=== PATIENT | male | born 1990 | race Caucasian/White ===

== ENCOUNTER → 2016-09-11 | Outpatient (CLI) | payer OTHER ==
[2016-09-11 10:34] LABS: BASO % 1 % (0-3); EOS % 1 % (0-3); HEMATOCRIT 44.9 % (39.0-53.0); HEMOGLOBIN 15.2 g/dL (13.0-17.5); LYMPH % 23 % (24-48); MEAN CORPUSCULAR HEMOGLOBIN 29 pg (25-35); MEAN CORPUSCULAR HGB CONC 34 g/dL (31-37); MEAN CORPUSCULAR VOLUME 86 fL (79-100); MONO % 12 % (0-9); NEUT % 63 % (31-73); PLATELET COUNT 278 x10^3/uL (140-400); RED BLOOD COUNT 5.25 x10^6/uL (4.30-5.70); RED CELL DISTRIBUTION WIDTH 12.6 % (11.5-14.5); WHITE BLOOD COUNT 8.6 x10^3/uL (4.0-11.0)
[2016-09-11 10:55] LABS: BARBITURATES NEG (NEG); BENZODIAZEPINES NEG (NEG); CANNABINOIDS POS (NEG); COCAINE NEG (NEG); METHADONE NEG (NEG); OPIATES NEG (NEG); PHENCYCLIDINE NEG (NEG)
[2016-09-11 10:59] LABS: ETHANOL, URINE NEG (NEG)
[2016-09-11 11:01] LABS: ALBUMIN 3.6 g/dL (3.4-5.0); ALBUMIN/GLOBULIN RATIO 0.9 (1.0-1.7); CALCIUM 8.5 mg/dL (8.5-10.1); CREATININE 0.7 mg/dL (0.7-1.3); GFR 135.3; POTASSIUM 3.9 mmol/L (3.5-5.1); TOTAL BILIRUBIN 0.5 mg/dL (0.2-1.0); TOTAL PROTEIN 7.7 g/dL (6.4-8.2)
== END | disposition home or self-care (01) ==
LOC: LAB 10:12
PROVIDERS: ATTEND Psychiatry & Neurology Neurology
DX: R56.9 Unspecified convulsions (principal)
CPT/HCPCS: 36415; 80053; 85027; G0481

== ENCOUNTER → 2016-09-13 | Outpatient (CLI) | payer OTHER ==
--- NOTE | 2016-09-14 18:21 | EEG ---
DATE OF SERVICE: 09/13/2016 EEG NUMBER: [id number]. OBJECTIVE: This is a 26-year-old English origin male patient with history of seizure or seizure-like episodes. EEG was requested to evaluate seizure activity. METHODS: Twenty electrodes were applied according to the International 10-20 electrode placement system. EKG monitoring, hyperventilation, intermittent photic stimulation, monopolar and bipolar montages are routinely utilized. The record was obtained on a digital system with video monitoring. MEDICATIONS: No anti-seizure medications. FINDINGS: 1. Background: The patient was recorded in the awake and drowsy states. No sleep state was recorded. The overall background amplitude is 10-30 microvolts. A posterior dominant rhythm of 8-10 Hz is observed. 2. Abnormalities: No specific epileptiform discharge or electrographic seizure is seen. No focal or diffuse slowing. 3. Activation: Hyperventilation was performed with good efforts and normal response. Intermittent photic stimulation was performed with photic driving. No specific epileptiform discharge or electrographic seizure induced by hyperventilation or intermittent photic stimulation. IMPRESSION: This EEG is a normal study for the awake, drowsy and sleep states. No focal, lateralizing, specific epileptiform discharge or electrographic seizure is seen. However, a normal EEG does not rule out seizure. EDMOND MALLOY MD DR: ATUL/elzbieta JOB#: [id number] / [id number] FANTASMA
== END | disposition home or self-care (01) ==
LOC: RT 07:34
PROVIDERS: ATTEND Psychiatry & Neurology Neurology
DX: R56.9 Unspecified convulsions (principal)
CPT/HCPCS: 95816

== ENCOUNTER → 2016-09-14 | Outpatient (CLI) | payer OTHER ==
[~2016-09-14] MED LIST: GADOBUTROL 10 MMOL/10 ML VIAL IV ONE
--- NOTE | 2016-09-14 14:27 | RAD ---
PROCEDURE MRI brain with and without contrast. HISTORY Seizure. TECHNIQUE Sagittal T1, axial T1, axial T2, axial FLAIR, oblique coronal FLAIR, axial T2 gradient, diffusion imaging with ADC map, post-contrast axial, and post-contrast coronal sequences are provided. 10 milliliters of intravenous Gadavist was administered without complication. COMPARISON No comparison is available. FINDINGS The ventricles are normal in size and configuration. There is no acute intracranial hemorrhage or extra-axial fluid collection. There is no mass effect or midline shift. There is no restricted diffusion to suggest an acute infarct. Cervicomedullary junction is unremarkable. Pituitary and suprasellar region are unremarkable. The intracranial flow voids are preserved. Paranasal sinuses and mastoid air cells are clear. Oblique coronal imaging through the temporal lobes demonstrates no evidence of mesial temporal sclerosis or temporal lobe mass. There is no pathologic enhancement. IMPRESSION No acute intracranial findings. Electronically signed by: Luis Chong MD (Sep 14, 2016 14:25:33)
== END | disposition home or self-care (01) ==
LOC: MRI 12:30
PROVIDERS: ATTEND Psychiatry & Neurology Neurology
DX: R56.9 Unspecified convulsions (principal)
CPT/HCPCS: 70553; A9585

== ENCOUNTER → 2016-10-25 | Outpatient (CLI) | payer OTHER ==
--- NOTE | 2016-11-07 18:55 | EEG ---
DATE OF SERVICE: 10/25/2016 EEG NUMBER [id number] OBJECTIVE: This is a 26-year-old male patient with history of seizure. EEG was requested to evaluate seizure activity. METHODS: Twenty electrodes were applied according to the international 10-20 electrode placement system. EKG monitoring, hyperventilation, intermittent photic stimulation, monopolar and bipolar montages are routinely utilized. The record brooks was obtained on a digital system with video monitoring. FINDINGS: 1. Background: The patient was recorded in the awake, drowsy, and sleep states. The overall background amplitude is 20-30 microvolts. A posterior dominant rhythm of 8-10 Hz is observed. 2. Abnormalities: No specific epileptiform discharge or electrographic seizure is seen. No focal or diffuse slowing. 3. Activation: Hyperventilation may be not performed. Intermittent photic stimulation was performed with photic driving. No specific epileptiform discharges induced. IMPRESSION: This EEG is a normal study for the awake, drowsy and sleep states. No focal, lateralizing, specific epileptiform discharge or electrographic seizure is seen. EDMOND MALLOY MD DR: ATUL/elzbieta JOB#: [id number] / [id number] FANTASMA
== END | disposition home or self-care (01) ==
LOC: RT 10:33
PROVIDERS: ATTEND Psychiatry & Neurology Neurology
DX: R56.9 Unspecified convulsions (principal)
CPT/HCPCS: 95816

== ENCOUNTER 2018-07-29 17:35 | Inpatient (IN) | payer OTHER ==
[~2018-07-29] VITALS: Ht 185.4 cm; Wt 113.5 kg
[2018-07-29 18:11] LABS: BASO # 0.1 x10^3/uL (0.0-0.2); BASO % 1 % (0-3); EOS # 0.1 x10^3/uL (0.0-0.7); EOS % 1 % (0-3); HEMATOCRIT 46.5 % (39.0-53.0); LYMPH # 2.4 x10^3/uL (1.0-4.8); LYMPH % 22 % (24-48); MEAN CORPUSCULAR HEMOGLOBIN 30 pg (25-35); MEAN CORPUSCULAR HGB CONC 34 g/dL (31-37); MEAN CORPUSCULAR VOLUME 86 fL (79-100); MONO % 9 % (0-9); NEUT # 7.4 x10^3uL (1.8-7.7); NEUT % 68 % (31-73); PLATELET COUNT 335 x10^3/uL (140-400); RED BLOOD COUNT 5.38 x10^6/uL (4.30-5.70); RED CELL DISTRIBUTION WIDTH 12.6 % (11.5-14.5)
--- NOTE | 2018-07-29 18:16 | RAD ---
CT HEAD WO CONTRAST History: Left numbness since yesterday Comparison: Brain MRI September 14, 2016 Technique: Noncontrast CT imaging was performed of the head. Exposure: One or more of the following individualized dose reduction techniques were utilized for this examination: 1. Automated exposure control 2. Adjustment of the mA and/or kV according to patient size 3. Use of iterative reconstruction technique. Findings: No acute extra-axial or parenchymal hemorrhage is identified. There is no significant intra-axial mass effect, midline shift, or extra-axial fluid collection. The fontaine-white differentiation of the major vascular territories is preserved. The ventricles, sulci, and cisterns are within normal limits in size and configuration. The mastoid air cells and the visualized paranasal sinuses are aerated. No acute calvarial abnormality is identified. Impression: 1. No acute intracranial abnormality is identified. Electronically signed by: Rene Moe MD (07/29/2018 6:13 PM) [facility]
[2018-07-29 18:21] LABS: PROTHROMBIN TIME PATIENT 12.4 SEC (11.7-14.0)
[2018-07-29 18:28] LABS: ALBUMIN/GLOBULIN RATIO 0.9 (1.0-1.7); C-REACTIVE PROTEIN 3.8 mg/L (0-3.3); CALCIUM 9.1 mg/dL (8.5-10.1); CREATININE 0.7 mg/dL (0.7-1.3); GFR 133.3; POTASSIUM 4.1 mmol/L (3.5-5.1); TOTAL BILIRUBIN 0.4 mg/dL (0.2-1.0); TOTAL PROTEIN 8.3 g/dL (6.4-8.2)
[2018-07-29 18:32] LABS: BILIRUBIN,URINE NEGATIVE (NEG); CLARITY,URINE CLOUDY; COLOR,URINE YELLOW; NITRITE,URINE NEGATIVE (NEG); PROTEIN,URINE NEGATIVE (NEG-TRACE); UROBILINOGEN,URINE 0.2 mg/dL (0.2 mg/dL)
[2018-07-29 18:37] LABS: AMPHETAMINE/METHAMPHETAMINE NEG (NEG); BARBITURATES NEG (NEG); BENZODIAZEPINES NEG (NEG); CANNABINOIDS POS (NEG); COCAINE NEG (NEG); METHADONE NEG (NEG); OPIATES POS (NEG); PHENCYCLIDINE NEG (NEG)
[2018-07-29 18:40] LABS: AMORPHOUS SEDIMENT,UR PRESENT /HPF; BACTERIA,URINE 0 /HPF (0-FEW); RBC,URINE 0 /HPF (0-2); SQUAMOUS EPITHELIAL CELL,UR OCC /LPF; WBC,URINE 0 /HPF (0-4)
[2018-07-29] MEDS ORDERED: ASPIRIN 325 MG TABLET PO ONE (18:45)
[2018-07-29] MEDS ORDERED: LABETALOL 20 MG/4 ML DISP.SYRIN. IVP ONE (18:45)
--- NOTE | 2018-07-29 18:51 | PHYS DOC ---
Past Medical History Past Medical History: Hypertension, Seizure (ELANA HART APRN) Past Surgical History: No Surgical History (ELANA HART APRN) Alcohol Use: Occasionally Drug Use: None (ELANA HART APRN) Adult General Chief Complaint Chief Complaint: NEURO SYMPTOMS/DEFICITS HPI HPI 28-year-old male presents to ER via POV with his sister driving him to the hospital from his primary care physician's office. Patient reports yesterday around 12 PM he had onset of left facial numbness and lt side tingling/weakness in extremities. He reports he has had less vision in lt eye- denies PRICE but reports he has been dizzy intermittently. Pt reports he felt his speech was slurred- currently is speaking in full sentences with no slurring. Pt reports he felt lt upper/lower extremities to be heavy. Pt reports he has been able to walk without assist. He denies recent falls/injury. Pt denies ear pain/ tinnitus. He denies CP, palpitations, SOA, abd pain, or N/V/D. He reports appetite has been NL. He denies urinary sxs. Pt reports he has been out of his BP medication since . Pt denies any new medications. (ELANA HART APRN) Review of Systems Review of Systems Constitutional: Denies fever or chills. Denies fatigue Eyes: Denies redness, or eye pain. Reports less vision in lt eye- denies floaters/aura. Reports unable to fully close lt eye HENT: Denies nasal congestion or sore throat [] Respiratory: Denies cough or shortness of breath [] Cardiovascular: Denies CP GI: Denies abdominal pain, nausea, vomiting, bloody stools or diarrhea [] : Denies dysuria or hematuria [] Musculoskeletal: Denies back/neck pain or joint pain [] Integument: Denies rash, swelling or skin lesions [] Neurologic: Denies headache, focal weakness or sensory changes. Reports tingling in lt upper/lower extremity and face. Reports intermittent dizziness Endocrine: Denies polyuria or polydipsia [] All other systems were reviewed and found to be within normal limits, except as documented in this note. (ELANA HART APRN) Current Medications Current Medications Current Medications Medications (Trade) Dose Ordered Sig/Carl Start Time Stop Time Status Last Admin Dose Admin Aspirin (Catrina Aspirin) 325 mg 1X ONCE 07/29/18 18:45 07/29/18 18:46 DC 07/29/18 19:12 325 MG Erythromycin (Romycin) 0.25 inch 1X ONCE 07/29/18 19:00 07/29/18 19:09 DC 07/29/18 19:27 0.25 INCH Labetalol HCl (Normodyne Iv Push) 20 mg 1X ONCE 07/29/18 18:45 07/29/18 18:46 DC (MILAD FREIRE DO) Allergies Allergies Allergies Coded Allergies Type Severity Reaction Last Updated Verified Penicillins Allergy Intermediate 07/29/18 Yes amoxicillin Allergy Intermediate 07/29/18 Yes (MILAD FREIRE DO) Physical Exam Physical Exam Constitutional: Well developed, well nourished, no acute distress, non-toxic appearance. [] HENT: Normocephalic, atraumatic, bilateral ears normal, oropharynx moist- no pharyngeal swelling/erythema- uvula midline, no oral exudates, nose normal. Clear speech- no pooling of secretions or difficulty swallowing. Lt side mouth paralysis with smile Eyes: 3mm PERRLA, EOMI- no pain with eye movements, no nystagmus, conjunctiva normal, no discharge. Pt is able to raise eye brows symmetric- when pt closes eyes tight he has less closure of lt eye. Neck: Normal range of motion, no tenderness, supple, no stridor/gross adenopathy. Trachea midline Cardiovascular: Heart rate regular rhythm, no murmur [] Lungs & Thorax: Bilateral breath sounds clear to auscultation. Resp. equal/ nonlabored Abdomen: Bowel sounds normal, soft/obese, no tenderness, no masses, no pulsatile masses. [] Skin: Warm, dry, no erythema, no rash. [] Back: No tenderness, no CVA tenderness. [] Extremities: No tenderness, no cyanosis, no clubbing, ROM intact, no edema. 2+ radial. 2+ posterior tibial/dorsalis pedis. Steady unassisted gait was seen as pt ambulated from w/c to ER cart Neurologic: Alert and oriented X 3- no drift in upper/lower extremities. Air Conditioning Service Technician equal bilat. Less sensation on lt face/lt upper extremity- he reports full sensation in bilat. LEs Psychologic: Affect normal, judgement normal, mood normal. [] (REFFITT,ELANA Doherty GED TEACHER) Physical Exam Constitutional: Well developed, well nourished Eyes: PERRL, EOMI, left sided ptosis noted. Neck: Normal range of motion, no tenderness, no meningeal signs Cardiovascular: Heart rate regular rhythm, Radial pulses bilaterally +2, CR < 2 sec Lungs & Thorax: Bilateral breath sounds clear to auscultation Extremities: No tenderness, ROM intact, no edema Neurologic: Alert and oriented X 3, left facial droop noted, decreased sensation to left face, and left arm (FREIRE,MILAD R DO) Current Patient Data Vital Signs Vital Signs Date Time Temp Pulse Resp B/P (MAP) Pulse Ox O2 Delivery O2 Flow Rate FiO2 07/29/18 19:00 78 162/102 07/29/18 18:39 23 97 07/29/18 17:39 98.4 Room Air 98.4 (FREIRE,MILAD R DO) Lab Values Laboratory Tests Test 07/29/18 17:48 07/29/18 17:50 07/29/18 18:23 White Blood Count 11.0 x10^3/uL (4.0-11.0) Red Blood Count 5.38 x10^6/uL (4.30-5.70) Hemoglobin 16.0 g/dL (13.0-17.5) Hematocrit 46.5 % (39.0-53.0) Mean Corpuscular Volume 86 fL (79-100) Mean Corpuscular Hemoglobin 30 pg (25-35) Mean Corpuscular Hemoglobin Concent 34 g/dL (31-37) Red Cell Distribution Width 12.6 % (11.5-14.5) Platelet Count 335 x10^3/uL (140-400) Neutrophils (%) (Auto) 68 % (31-73) Lymphocytes (%) (Auto) 22 % (24-48) L Monocytes (%) (Auto) 9 % (0-9) Eosinophils (%) (Auto) 1 % (0-3) Basophils (%) (Auto) 1 % (0-3) Neutrophils # (Auto) 7.4 x10^3uL (1.8-7.7) Lymphocytes # (Auto) 2.4 x10^3/uL (1.0-4.8) Monocytes # (Auto) 1.0 x10^3/uL (0.0-1.1) Eosinophils # (Auto) 0.1 x10^3/uL (0.0-0.7) Basophils # (Auto) 0.1 x10^3/uL (0.0-0.2) Erythrocyte Sedimentation Rate 16 (0-15) H Prothrombin Time 12.4 SEC (11.7-14.0) Prothrombin Time INR 1.0 (0.8-1.1) PTT 29 SEC (24-38) Sodium Level 140 mmol/L (136-145) Potassium Level 4.1 mmol/L (3.5-5.1) Chloride Level 99 mmol/L (98-107) Carbon Dioxide Level 31 mmol/L (21-32) Anion Gap 10 (6-14) Blood Urea Nitrogen 13 mg/dL (8-26) Creatinine 0.7 mg/dL (0.7-1.3) Estimated GFR (Cockcroft-Gault) 133.3 BUN/Creatinine Ratio 19 (6-20) Glucose Level 97 mg/dL (70-99) Lactic Acid Level 1.0 mmol/L (0.4-2.0) Calcium Level 9.1 mg/dL (8.5-10.1) Magnesium Level 2.0 mg/dL (1.8-2.4) Total Bilirubin 0.4 mg/dL (0.2-1.0) Aspartate Amino Transferase (AST) 29 U/L (15-37) Alanine Aminotransferase (ALT) 62 U/L (16-63) Alkaline Phosphatase 79 U/L (46-116) Creatine Kinase 137 U/L (39-308) Creatine Kinase MB (Mass) 1.0 ng/mL (0.0-3.6) Creatine Kinase MB Relative Index 0.7 % (0-4) Troponin I Quantitative < 0.017 ng/mL (0.000-0.055) C-Reactive Protein, Quantitative 3.8 mg/L (0-3.3) H Total Protein 8.3 g/dL (6.4-8.2) H Albumin 4.0 g/dL (3.4-5.0) Albumin/Globulin Ratio 0.9 (1.0-1.7) L Ethyl Alcohol Level < 10 mg/dL (0-10) Glucose (Fingerstick) 92 mg/dL (70-99) Urine Collection Type Unknown Urine Color Yellow Urine Clarity Cloudy Urine pH 7.0 Urine Specific Norman 1.020 Urine Protein Negative mg/dL (NEG-TRACE) Urine Glucose (UA) Negative mg/dL (NEG) Urine Ketones (Stick) Negative mg/dL (NEG) Urine Blood Negative (NEG) Urine Nitrite Negative (NEG) Urine Bilirubin Negative (NEG) Urine Urobilinogen Dipstick 0.2 mg/dL (0.2 mg/dL) Urine Leukocyte Esterase Negative (NEG) Urine RBC 0 /HPF (0-2) Urine WBC 0 /HPF (0-4) Urine Squamous Epithelial Cells Occ /LPF Urine Amorphous Sediment Present /HPF Urine Bacteria 0 /HPF (0-FEW) Urine Mucus Slight /LPF Urine Opiates Screen Pos (NEG) Urine Methadone Screen Neg (NEG) Urine Barbiturates Neg (NEG) Urine Phencyclidine Screen Neg (NEG) Urine Amphetamine/Methamphetamine Neg (NEG) Urine Benzodiazepines Screen Neg (NEG) Urine Cocaine Screen Neg (NEG) Urine Cannabinoids Screen Pos (NEG) Urine Ethyl Alcohol Neg (NEG) Laboratory Tests 07/29/18 17:48 Laboratory Tests 07/29/18 17:48 (MILAD FREIRE DO) EKG EKG EKG obtained 07/29/18 at [address] Freire Sinus rhythm Rate 78 No STEMI (ELANA HART APRN) Radiology/Procedures Radiology/Procedures []PROCEDURE: CT HEAD WO CONTRAST CT HEAD WO CONTRAST History: Left numbness since yesterday Comparison: Brain MRI September 14, 2016 Technique: Noncontrast CT imaging was performed of the head. Exposure: One or more of the following individualized dose reduction techniques were utilized for this examination: 1. Automated exposure control 2. Adjustment of the mA and/or kV according to patient size 3. Use of iterative reconstruction technique. Findings: No acute extra-axial or parenchymal hemorrhage is identified. There is no significant intra-axial mass effect, midline shift, or extra-axial fluid collection. The fontaine-white differentiation of the major vascular territories is preserved. The ventricles, sulci, and cisterns are within normal limits in size and configuration. The mastoid air cells and the visualized paranasal sinuses are aerated. No acute calvarial abnormality is identified. Impression: 1. No acute intracranial abnormality is identified. Electronically signed by: Kierra Wells MD (07/29/2018 6:13 PM) [facility] DICTATED and SIGNED BY: KIERRA WELLS MD DATE: 07/29/181811 PROCEDURE: CHEST AP ONLY CHEST AP ONLY History: Left side numbness Comparison: August 03, 2012 Findings: Single view of the chest is submitted. There is no infiltrate, pneumothorax, or effusion. The pericardial cardiac silhouette is within normal limits in size. Impression: 1. There is no evidence of acute cardiopulmonary disease. Electronically signed by: Kierra Wells MD (07/29/2018 10:29 PM) [facility] DICTATED and SIGNED BY: KIERRA WELLS MD DATE: 07/29/182228 (ELANA HART APRN) Course & Med Decision Making Course & Med Decision Making Pertinent Labs and Imaging studies reviewed. (See chart for details) 1849: Pt's case and plan of care was discussed with Dr. Freire who came to room for eval. of pt with this provider. NIHSS 4 with no change from initial exam by this provider. Pt remains A&Ox3 with clear speech. CT head neg. for acute findings- this was discussed with pt. Pt's BP has been elevated since arrival with pt reporting he had been out of his Losartan since . On recheck 176/ 80 HR 80- will hold off on ordered Labetalol. With patient's history of seizures in the past added lactic acid and CPK to labs. Dr. Freire discussed admission with patient. Aspirin 325mg PO was ordered. Test results were discussed with pt- EKG with no acute ST elevation/STEMI and troponin <0.017; UDS positive for opiates and cannabinoids- which pt had denied any illicit drug use. Chest xray with no findings. 0: Dr. Deshpande, hospitalist was in ER- Dr. Freire discussed pt's case and admit plans with him. 1904: Spoke with Dr. Pham, neurology and discussed pt's case and admit plan with consult for his services. Discussed concerns for CVA with pt having risk factors with family hx of CVA as mom and sister both with CVA hx of pt's hx of HTN. Also discussed questionable Carter's Palsy/John's Paralysis and added labs to further r/o possible seizure. No new orders requested by Dr. Pham- will place consult for his services with admit orders. Pt admitted to Med/Tele for further care/monitoring- pt has remained stable while in ER with BP improved at 162/102 and pt reported he felt better than he did at arrival to ER. He has had no change in exam with ongoing lt side facial paralysis and ongoing lt side tingling/heaviness in lt upper extremity. He has been A&Ox3 with no change in MS. Pt's CK was NL at 137- Sed rate was 16 and CRP 3.8. (ELANA HART APRN) Dragon Disclaimer Dragon Disclaimer This electronic medical record was generated, in whole or in part, using a voice recognition dictation system. (ELANA HART APRN) Departure Departure Impression: Primary Impression: Left facial numbness Additional Impression: Left sided numbness Disposition: ADMITTED INPATIENT Admitting Physician: Other (ELANA HART APRN) Condition: STABLE (Dr. Deshpande) Referrals: KARINA CERNA (PCP) Scripts Prednisone (PREDNISONE ) 10 Mg Tablet 40 MG PO DAILY for BELLS PALSY for 6 Days, #24 TAB 0 Refills TAKE 40 MG FOR 3 DAYS THEN 30 MG FOR ONE DAY THEN 20 MG FOR ONE DAY THEN 10 MG FOR ONE DAY THEN STOP Prov: ELIJAH DESHPANDE MD 07/30/18 NIHSS Stroke Scale NIH Stroke Scale: NIH Stroke Scale Response (Comments) Value Level of Consciousness: 0 Alert/Responsive 0 LOC Questions: 0 Answers both correctly 0 LOC Commands: 0 Performs both tasks 0 Best Gaze: 0 Normal 0 Visual: 0 No visual loss 0 Facial Palsy: 3 Complete paralysis (lt side) 3 Motor - Left Arm 0 No drift 0 Motor - Right Arm 0 No drift 0 Motor - Left Leg 0 No drift 0 Motor: Right Leg 0 No drift 0 Limb Ataxia: 0 Absent 0 Sensory: 1 Mid to moderate loss 1 Best Language: 0 Normal 0 Dysathria: 0 Normal 0 Extinction and Inattention: 0 Normal 0 Total 4 Attending Signature Attending Signature I have personally interviewed and examined the patient. All charts, labs, and imaging studies were reviewed. I agree with the PA/FILLER SIFTER MACHINE's findings, exam, and plan. (MILAD FREIRE DO) Problem Qualifiers ELANA HART APRN Jul 29, 2018 18:51 MILAD FREIRE DO Jul 31, 2018 03:45
[2018-07-29] MEDS ORDERED: ERYTHROMYCIN 0.5% OPHTH OINTMENT 1GM TUBE. OS ONE (19:00)
[2018-07-29] MEDS ORDERED: ONDANSETRON PF 4 MG/2 ML VIAL. IV PRN (19:30)
[2018-07-29] MEDS ORDERED: ENALAPRILAT 1.25 MG/ML VIAL. IVP PRN (19:30)
[2018-07-29] MEDS ORDERED: ZOLPIDEM 5 MG TABLET. PO PRN (19:30)
[2018-07-29] MEDS ORDERED: LORazepam 0.5 MG TABLET PO PRN (19:30)
[2018-07-29] MEDS ORDERED: ACETAMINOPHEN 325 MG TABLET. PO PRN ×2 (19:30→20:45)
[2018-07-29] MEDS: prednisoLONE 15 MG/5 ML ORAL SOLUTION. PO SCH (19:30)
[2018-07-29 19:55] VITALS: BP 154/100
[2018-07-29] MEDS ORDERED: IPRATRPIUM/ALBUTEROL 0.5/2.5MG 3 ML NEBU. NEB SCH (20:00)
[2018-07-29] MEDS ORDERED: ACETAMINOPHEN 650 MG SUPP.RECT. PR PRN (20:45)
[2018-07-29] MEDS ORDERED: ASPIRIN RECTAL 300 MG SUPP. PR PRN (20:45)
--- NOTE | 2018-07-29 22:32 | RAD ---
CHEST AP ONLY History: Left side numbness Comparison: August 03, 2012 Findings: Single view of the chest is submitted. There is no infiltrate, pneumothorax, or effusion. The pericardial cardiac silhouette is within normal limits in size. Impression: 1. There is no evidence of acute cardiopulmonary disease. Electronically signed by: Rene Moe MD (07/29/2018 10:29 PM) [facility]
--- NOTE | 2018-07-29 22:39 | PDOC1 ---
History and Physical Date of Admission Date of Admission 07/29/2018 Identification/Chief Complaint Chief Complaint my face is numb Problems: (1) Left facial numbness Source Source: Chart review, Patient History of Present Illness History of Present Illness Patient is a 28 year old male with past medical history of hyeprtension and history of seizure disorder who was in his usual state of health until the morning prior ot his admission when he woke up with sensation of heaviness oveer his left hemiface. Patient also relates that he felt some "heaviness" over his left upper extremity and this was more noticeable when brushing his teeth. The patient has a history of seizure disorder and when he had an event years back he felt similar symptoms. He denies aura type of symptoms, no auditory olfactory or visual symptoms. He denies slurred speech, no headcahe loss of consciousness or tonic clonic activity was reported. The patient at the time of my evaluation is exhibiting signs compatible with Carter's palsy, he denies recent viral infections, no rashes no history of ear infections or pain either. Patient is able to close his eyes but there seems to be left facial droop, he does not present drift, he is able to follow commands, no other neurological deficits are evident during my encounter, we have been asked to admit the patient for further evaluation and treatment. Past Medical History Cardiovascular: HTN CENTRAL NERVOUS SYSTEM: Seizure Past Surgical History Past Surgical History: No pertinent history Social History Smoke: No ALCOHOL: none Drugs: None Current Medications Current Medications Current Medications Medications (Trade) Dose Ordered Sig/Carl Start Time Stop Time Status Last Admin Dose Admin Acetaminophen (Tylenol Supp) 650 mg PRN Q4HRS PRN 07/29/18 20:45 Acetaminophen (Tylenol) 650 mg PRN Q6HRS PRN 07/29/18 20:45 Albuterol/ Ipratropium (Duoneb) 3 ml Q4HRS 07/29/18 20:00 07/29/18 20:54 3 ML Aspirin (Aspirin) 300 mg PRN DAILY PRN 07/29/18 20:45 Aspirin (Catrina Aspirin) 325 mg 1X ONCE 07/29/18 18:45 07/29/18 18:46 DC 07/29/18 19:12 325 MG Aspirin (Ecotrin) 325 mg DAILYWBKFT 07/30/18 08:00 Enalaprilat (Vasotec Inj) 1.25 mg PRN Q6HRS PRN 07/29/18 19:30 Erythromycin (Romycin) 0.25 inch 1X ONCE 07/29/18 19:00 07/29/18 19:09 DC 07/29/18 19:27 0.25 INCH Labetalol HCl (Normodyne Iv Push) 20 mg 1X ONCE 07/29/18 18:45 07/29/18 18:46 DC Lorazepam (Ativan) 0.5 mg PRN Q4HRS PRN 07/29/18 19:30 Losartan Potassium (Cozaar) 50 mg DAILY 07/30/18 09:00 Ondansetron HCl (Zofran) 4 mg PRN Q4HRS PRN 07/29/18 19:30 Prednisone (Prelone Oral Soln) 60 mg DAILY 07/29/18 19:30 Spironolactone (Aldactone) 25 mg DAILY 07/30/18 09:00 Zolpidem Tartrate (Ambien) 5 mg PRN QHS PRN 07/29/18 19:30 Allergies Allergies Allergies Coded Allergies Type Severity Reaction Last Updated Verified Penicillins Allergy Intermediate 07/29/18 Yes amoxicillin Allergy Intermediate 07/29/18 Yes ROS Review of System CONSTITUTIONAL: No fever or chills EYES: No recent changes SKIN: No rash or itching CARDIOVASCULAR: No chest pain, syncope, palpitations, or edema RESPIRATORY: No SOB or cough GASTROINTESTINAL: No nausea, vomiting or abdominal pain NEUROLOGICAL: No headaches + weakness ENDOCRINE: No cold or heat intolerance GENITOURINARY: No urgency or frequency of urination MUSCULOSKELETAL: No back pain or joint pain LYMPHATICS: No enlarged lymph nodes PSYCHIATRIC: No anxiety or depression Physical Exam Physical Exam GEN.: No apparent distress. Alert and oriented. HEENT: Head is normocephalic, atraumatic NECK: Supple. LUNGS: Clear to auscultation. HEART: RRR, S1, S2 present. Peripheral pulses intact ABDOMEN: Soft, nontender. Positive bowel sounds. EXTREMITIES: Without any cyanosis. NEUROLOGIC: Normal speech, normal tone, left facial droop. Loss of forehead wrinkles, he is able to close both his eyes but there is a delay on his left side. PSYCHIATRIC: Normal affect, normal mood. SKIN: No ulcerations Vitals Vitals Vital Signs Date Time Temp Pulse Resp B/P (MAP) Pulse Ox O2 Delivery O2 Flow Rate FiO2 07/29/18 20:55 96 Room Air 07/29/18 19:35 18 07/29/18 19:00 78 162/102 07/29/18 17:39 98.4 98.4 Labs Labs Laboratory Tests Test 07/29/18 17:48 07/29/18 17:50 07/29/18 18:23 White Blood Count 11.0 x10^3/uL (4.0-11.0) Red Blood Count 5.38 x10^6/uL (4.30-5.70) Hemoglobin 16.0 g/dL (13.0-17.5) Hematocrit 46.5 % (39.0-53.0) Mean Corpuscular Volume 86 fL (79-100) Mean Corpuscular Hemoglobin 30 pg (25-35) Mean Corpuscular Hemoglobin Concent 34 g/dL (31-37) Red Cell Distribution Width 12.6 % (11.5-14.5) Platelet Count 335 x10^3/uL (140-400) Neutrophils (%) (Auto) 68 % (31-73) Lymphocytes (%) (Auto) 22 % (24-48) Monocytes (%) (Auto) 9 % (0-9) Eosinophils (%) (Auto) 1 % (0-3) Basophils (%) (Auto) 1 % (0-3) Neutrophils # (Auto) 7.4 x10^3uL (1.8-7.7) Lymphocytes # (Auto) 2.4 x10^3/uL (1.0-4.8) Monocytes # (Auto) 1.0 x10^3/uL (0.0-1.1) Eosinophils # (Auto) 0.1 x10^3/uL (0.0-0.7) Basophils # (Auto) 0.1 x10^3/uL (0.0-0.2) Erythrocyte Sedimentation Rate 16 (0-15) Prothrombin Time 12.4 SEC (11.7-14.0) Prothromb Time International Ratio 1.0 (0.8-1.1) Activated Partial Thromboplast Time 29 SEC (24-38) Sodium Level 140 mmol/L (136-145) Potassium Level 4.1 mmol/L (3.5-5.1) Chloride Level 99 mmol/L (98-107) Carbon Dioxide Level 31 mmol/L (21-32) Anion Gap 10 (6-14) Blood Urea Nitrogen 13 mg/dL (8-26) Creatinine 0.7 mg/dL (0.7-1.3) Estimated GFR (Cockcroft-Gault) 133.3 BUN/Creatinine Ratio 19 (6-20) Glucose Level 97 mg/dL (70-99) Lactic Acid Level 1.0 mmol/L (0.4-2.0) Calcium Level 9.1 mg/dL (8.5-10.1) Magnesium Level 2.0 mg/dL (1.8-2.4) Total Bilirubin 0.4 mg/dL (0.2-1.0) Aspartate Amino Transf (AST/SGOT) 29 U/L (15-37) Alanine Aminotransferase (ALT/SGPT) 62 U/L (16-63) Alkaline Phosphatase 79 U/L (46-116) Creatine Kinase 137 U/L (39-308) Creatine Kinase MB (Mass) 1.0 ng/mL (0.0-3.6) Creatine Kinase MB Relative Index 0.7 % (0-4) Troponin I Quantitative < 0.017 ng/mL (0.000-0.055) C-Reactive Protein, Quantitative 3.8 mg/L (0-3.3) Total Protein 8.3 g/dL (6.4-8.2) Albumin 4.0 g/dL (3.4-5.0) Albumin/Globulin Ratio 0.9 (1.0-1.7) Ethyl Alcohol Level < 10 mg/dL (0-10) Glucose (Fingerstick) 92 mg/dL (70-99) Urine Collection Type Unknown Urine Color Yellow Urine Clarity Cloudy Urine pH 7.0 Urine Specific [place] 1.020 Urine Protein Negative mg/dL (NEG-TRACE) Urine Glucose (UA) Negative mg/dL (NEG) Urine Ketones (Stick) Negative mg/dL (NEG) Urine Blood Negative (NEG) Urine Nitrite Negative (NEG) Urine Bilirubin Negative (NEG) Urine Urobilinogen Dipstick 0.2 mg/dL (0.2 mg/dL) Urine Leukocyte Esterase Negative (NEG) Urine RBC 0 /HPF (0-2) Urine WBC 0 /HPF (0-4) Urine Squamous Epithelial Cells Occ /LPF Urine Amorphous Sediment Present /HPF Urine Bacteria 0 /HPF (0-FEW) Urine Mucus Slight /LPF Urine Opiates Screen Pos (NEG) Urine Methadone Screen Neg (NEG) Urine Barbiturates Neg (NEG) Urine Phencyclidine Screen Neg (NEG) Urine Amphetamine/Methamphetamine Neg (NEG) Urine Benzodiazepines Screen Neg (NEG) Urine Cocaine Screen Neg (NEG) Urine Cannabinoids Screen Pos (NEG) Urine Ethyl Alcohol Neg (NEG) Laboratory Tests Test 07/29/18 17:48 07/29/18 17:50 07/29/18 18:23 White Blood Count 11.0 x10^3/uL (4.0-11.0) Red Blood Count 5.38 x10^6/uL (4.30-5.70) Hemoglobin 16.0 g/dL (13.0-17.5) Hematocrit 46.5 % (39.0-53.0) Mean Corpuscular Volume 86 fL (79-100) Mean Corpuscular Hemoglobin 30 pg (25-35) Mean Corpuscular Hemoglobin Concent 34 g/dL (31-37) Red Cell Distribution Width 12.6 % (11.5-14.5) Platelet Count 335 x10^3/uL (140-400) Neutrophils (%) (Auto) 68 % (31-73) Lymphocytes (%) (Auto) 22 % (24-48) Monocytes (%) (Auto) 9 % (0-9) Eosinophils (%) (Auto) 1 % (0-3) Basophils (%) (Auto) 1 % (0-3) Neutrophils # (Auto) 7.4 x10^3uL (1.8-7.7) Lymphocytes # (Auto) 2.4 x10^3/uL (1.0-4.8) Monocytes # (Auto) 1.0 x10^3/uL (0.0-1.1) Eosinophils # (Auto) 0.1 x10^3/uL (0.0-0.7) Basophils # (Auto) 0.1 x10^3/uL (0.0-0.2) Erythrocyte Sedimentation Rate 16 (0-15) Prothrombin Time 12.4 SEC (11.7-14.0) Prothromb Time International Ratio 1.0 (0.8-1.1) Activated Partial Thromboplast Time 29 SEC (24-38) Sodium Level 140 mmol/L (136-145) Potassium Level 4.1 mmol/L (3.5-5.1) Chloride Level 99 mmol/L (98-107) Carbon Dioxide Level 31 mmol/L (21-32) Anion Gap 10 (6-14) Blood Urea Nitrogen 13 mg/dL (8-26) Creatinine 0.7 mg/dL (0.7-1.3) Estimated GFR (Cockcroft-Gault) 133.3 BUN/Creatinine Ratio 19 (6-20) Glucose Level 97 mg/dL (70-99) Lactic Acid Level 1.0 mmol/L (0.4-2.0) Calcium Level 9.1 mg/dL (8.5-10.1) Magnesium Level 2.0 mg/dL (1.8-2.4) Total Bilirubin 0.4 mg/dL (0.2-1.0) Aspartate Amino Transf (AST/SGOT) 29 U/L (15-37) Alanine Aminotransferase (ALT/SGPT) 62 U/L (16-63) Alkaline Phosphatase 79 U/L (46-116) Creatine Kinase 137 U/L (39-308) Creatine Kinase MB (Mass) 1.0 ng/mL (0.0-3.6) Creatine Kinase MB Relative Index 0.7 % (0-4) Troponin I Quantitative < 0.017 ng/mL (0.000-0.055) C-Reactive Protein, Quantitative 3.8 mg/L (0-3.3) Total Protein 8.3 g/dL (6.4-8.2) Albumin 4.0 g/dL (3.4-5.0) Albumin/Globulin Ratio 0.9 (1.0-1.7) Ethyl Alcohol Level < 10 mg/dL (0-10) Glucose (Fingerstick) 92 mg/dL (70-99) Urine Collection Type Unknown Urine Color Yellow Urine Clarity Cloudy Urine pH 7.0 Urine Specific [place] 1.020 Urine Protein Negative mg/dL (NEG-TRACE) Urine Glucose (UA) Negative mg/dL (NEG) Urine Ketones (Stick) Negative mg/dL (NEG) Urine Blood Negative (NEG) Urine Nitrite Negative (NEG) Urine Bilirubin Negative (NEG) Urine Urobilinogen Dipstick 0.2 mg/dL (0.2 mg/dL) Urine Leukocyte Esterase Negative (NEG) Urine RBC 0 /HPF (0-2) Urine WBC 0 /HPF (0-4) Urine Squamous Epithelial Cells Occ /LPF Urine Amorphous Sediment Present /HPF Urine Bacteria 0 /HPF (0-FEW) Urine Mucus Slight /LPF Urine Opiates Screen Pos (NEG) Urine Methadone Screen Neg (NEG) Urine Barbiturates Neg (NEG) Urine Phencyclidine Screen Neg (NEG) Urine Amphetamine/Methamphetamine Neg (NEG) Urine Benzodiazepines Screen Neg (NEG) Urine Cocaine Screen Neg (NEG) Urine Cannabinoids Screen Pos (NEG) Urine Ethyl Alcohol Neg (NEG) VTE Prophylaxis Ordered VTE Prophylaxis Devices: Yes VTE Pharmacological Prophylaxi: No Assessment/Plan Assessment/Plan Left facial droop, 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
[2018-07-29 23:10] VITALS: BP 157/92
[2018-07-30] MEDS ORDERED: ALBUTEROL SULFATE 2.5 MG/3 ML NEBU. NEB PRN (00:30)
[2018-07-30] MEDS ORDERED: DEXT20TA2 PO (00:32)
[2018-07-30] MEDS ORDERED: PHEN37.5 PO (00:32)
[2018-07-30] MEDS ORDERED: LOSA-73 PO (00:32)
[2018-07-30] MEDS ORDERED: SPIR25TA5 PO (00:32)
[2018-07-30] MEDS ORDERED: LORA0.5T96 PO (00:32)
[2018-07-30 03:10] VITALS: BP 132/81
[2018-07-30 07:00] VITALS: BP 142/78
--- NOTE | 2018-07-30 07:10 | EKG ---
[facility] [address] [place] [address] Test Date: 2018-07-29 Test Time: 17:47:30 Pat Name: THEODORE DURON Department: Room: 671 1 Gender: M [employer]: : 1990 Requested By: ELANA HART Order Number: [id number] Reading MD: Farhat Jones MD Measurements Intervals [place] Rate: 78 P: 19 GA: 176 QRS: 19 QRSD: 104 T: 19 QT: 374 QTc: 430 Interpretive Statements SINUS RHYTHM Electronically Signed On 07-31-2018 11:29:17 SAW GRINDER by Farhat Jones MD
[2018-07-30] MEDS ORDERED: IOHEXOL 350 MG/ML 100 ML VIAL. IV ONE (07:30)
[2018-07-30] MEDS ORDERED: CONTRAST GIVEN. MC PRN (07:30)
[2018-07-30 07:54] LABS: CHOLESTEROL/HDL RATIO 3.5
[2018-07-30] MEDS ORDERED: ASPIRIN ENTERIC COATED 325 MG TABLET.DR. PO SCH (08:00)
[2018-07-30] MEDS ORDERED: LOSARTAN POTASSIUM 50 MG TABLET. PO SCH (09:00)
[2018-07-30] MEDS ORDERED: SPIRONOLACTONE 25 MG TABLET PO SCH (09:00)
--- NOTE | 2018-07-30 10:00 | RAD ---
CTA of the head and neck with contrast, 07/30/2018: HISTORY: CVA, left facial numbness Multidetector CT imaging was performed following an IV bolus injection of iodinated contrast material. Multiplanar reconstructions were produced including MIP images and 3-D volume rendered reconstructions of the major arteries. The carotid arteries in the neck are widely patent. The carotid bifurcations are unremarkable. The anterior cerebral and middle cerebral arteries and their major branches show no significant abnormality. No aneurysm, occlusion or major arterial stenosis is identified. The proximal left vertebral artery is partially obscured by artifacts arising from dense venous contrast. Both vertebral arteries in the neck are patent up through their junction with the basilar artery. The basilar artery and both posterior cerebral arteries show no significant abnormality. IMPRESSION: No significant abnormality is detected. PQRS Compliance Statement: One or more of the following individualized dose reduction techniques were utilized for this examination: 1. Automated exposure control 2. Adjustment of the mA and/or kV according to patient size 3. Use of iterative reconstruction technique Electronically signed by: Steven Gutierres MD (07/30/2018 9:57 AM) [facility]
--- NOTE | 2018-07-30 10:04 | CARD ---
MR#: [id number] Date of Study: 07/30/2018 Ordering Physician: KAMRON ESPINOZA, Referring Physician: ELIJAH BACA Tech: Martina Madrid [facility] APPROVED REPORT EXAM: Two-dimensional and M-mode echocardiogram with Doppler and color Doppler. Other Information Quality : AverageHR: 67bpm Rhythm : NSRTechnically limited study due to body habitus. INDICATION CVA/TIA 2D DIMENSIONS RVDd3.8 (2.9-3.5cm)Left Atrium(2D)4.2 (1.6-4.0cm) IVSd1.1 (0.7-1.1cm)Aortic Root(2D)3.3 (2.0-3.7cm) LVDd4.4 (3.9-5.9cm)LVOT Diameter2.3 (1.8-2.4cm) PWd1.1 (0.7-1.1cm)LVDs3.0 (2.5-4.0cm) FS (%) 31.8 %SV52.9 ml LVEF(%)60.1 (>50%) M-Mode DIMENSIONS Left Atrium(MM)4.00 (2.5-4.0cm)Aortic Root3.31 (2.2-3.7cm) Aortic Valve AoV Peak Sonu.116.3cm/sAoV VTI27.1cm AO Peak GR.5.4mmHgLVOT Peak Sonu.92.2cm/s AO Mean GR.3mmHgAVA (VMAX)3.33cm2 YELITZA (VTI)3.30cm2 Mitral Valve MV E Mmzpiysm156.8cm/sMV DECEL VSKU441ur MV A Vjvnwrtl03.5cm/sE/A Ratio2.2 Pulmonary Valve PV Peak Yrudzmir652.5cm/s LEFT VENTRICLE The left ventricle is normal size. There is borderline to mild concentric left ventricular hypertroph y. The left ventricular systolic function is normal and the ejection fraction is within normal range. The Ejection Fraction is 55-60%. There is normal LV segmental wall motion. The left ventricular britton tolic function and filling is normal for age. RIGHT VENTRICLE The right ventricle is mild to moderately dilated. There is normal right ventricular wall thickness. The right ventricular systolic function is normal. ATRIA The left atrium is mildly dilated. The right atrium is mildly dilated. The interatrial septum is inta ct with no evidence for an atrial septal defect or patent foramen ovale as noted on 2-D or Doppler im aging. Injection of bubbles documented no interatrial shunt. AORTIC VALVE The aortic valve is probably trileaflet. Doppler and Color Flow revealed no significant aortic regurg itation. There is no significant aortic valvular stenosis. MITRAL VALVE The mitral valve is normal in structure and function. There is no evidence of mitral valve prolapse. There is no mitral valve stenosis. Doppler and Color Flow revealed no mitral valve regurgitation note d. TRICUSPID VALVE The tricuspid valve is normal in structure and function. Doppler and Color Flow revealed trace tricus pid regurgitation. There is no tricuspid valve prolapse or vegetation. There is no tricuspid valve st enosis. PULMONIC VALVE The pulmonary valve is normal in structure and function. Doppler and Color Flow revealed no pulmonic valvular regurgitation. There is no pulmonic valvular stenosis. GREAT VESSELS The aortic root is normal in size. The ascending aorta is normal in size. The IVC is normal in size a nd collapses >50% with inspiration. PERICARDIAL EFFUSION There is no evidence of significant pericardial effusion. Critical Notification Critical Value: No <Conclusion> The left ventricular systolic function is normal and the ejection fraction is within normal range. Th e Ejection Fraction is 55-60%. There is normal LV segmental wall motion. The right ventricle is mild to moderately dilated. The interatrial septum is intact with no evidence for an atrial septal defect or patent foramen ovale as noted on 2-D or Doppler imaging. Injection of bubbles documented no interatrial shunt. Technically dificult study. If there is high suspicion for cardiac source of emboli, consider TASHA. Signed by : Farhat Jones, Electronically Approved : 07/30/2018 10:03:46
[2018-07-30] MEDS: prednisoLONE 15 MG/5 ML ORAL SOLUTION. PO SCH (10:16)
--- NOTE | 2018-07-30 10:26 | PDOC2 ---
NEUROLOGY CONSULT Date of Admission Date of Admission DATE: 07/30/18 TIME: 10:14 Reason for Consult Reason for Consult: Possible stroke Referring Physician Referring Physician: Dr. Deshpande Source Source: Chart review, Patient History of Present Illness History of Present Illness The patient is a 28-year-old right-handed male who to days ago noticed the onset of left facial droop, left arm numbness, and left facial numbness. He also had a mild left-sided headache. He denies need prior history of headaches. He presented to the emergency department yesterday, obviously too late for consideration of alteplase. He is feeling better now. He still has some left facial drooping, left face numbness, but no longer has the left arm numbness. He saw Dr. Viveros 2 years ago for a single seizure and took levetiracetam for 6 months and tapered off. There is no history of head injury. Past Medical History Cardiovascular: HTN Pulmonary: Asthma (childhood) CENTRAL NERVOUS SYSTEM: Periperal neuropathy (on nursing notes, I find no evidence of this), Seizure Psych: Anxiety, Depression Past Surgical History Past Surgical History: No pertinent history Family History Family History: No pertinent hx Social History Social History Single, works at the [employer], rare alcohol, rare marijuana, no tobacco Current Medications Current Medications Current Medications Labetalol HCl (Normodyne Iv Push) 20 mg 1X ONCE IVP ; Start 07/29/18 at 18:45; Stop 07/29/18 at 18:46; Status DC Aspirin (Catrina Aspirin) 325 mg 1X ONCE PO Last administered on 07/29/18at 19:12 ; Start 07/29/18 at 18:45; Stop 07/29/18 at 18:46; Status DC Erythromycin (Romycin) 0.25 inch 1X ONCE OS Last administered on 07/29/18at 19: 27; Start 07/29/18 at 19:00; Stop 07/29/18 at 19:09; Status DC Ondansetron HCl (Zofran) 4 mg PRN Q4HRS PRN IV NAUSEA/VOMITING; Start 07/29/18 at 19:30 Zolpidem Tartrate (Ambien) 5 mg PRN QHS PRN PO INSOMNIA; Start 07/29/18 at 19:30 Acetaminophen (Tylenol) 650 mg PRN Q4HRS PRN PO TEMP OVER 100.4F OR MILD PAIN; Start 3/5/19 at 19:30 Albuterol/ Ipratropium (Duoneb) 3 ml Q4HRS NEB Last administered on 07/29/18at 20 :54; Start 07/29/18 at 20:00; Stop 07/30/18 at 00:20; Status DC Lorazepam (Ativan) 0.5 mg PRN Q4HRS PRN PO ANXIETY / AGITATION; Start 07/29/18 at 19:30 Losartan Potassium (Cozaar) 50 mg DAILY PO ; Start 07/30/18 at 09:00 Spironolactone (Aldactone) 25 mg DAILY PO ; Start 07/30/18 at 09:00 Enalaprilat (Vasotec Inj) 1.25 mg PRN Q6HRS PRN IVP Hypertension; Start at 19:30 Prednisone (Prelone Oral Soln) 60 mg DAILY PO ; Start 07/29/18 at 19:30 Acetaminophen (Tylenol) 650 mg PRN Q6HRS PRN PO TEMP > 100.4F; Start 07/29/18 at 20:45 Acetaminophen (Tylenol Supp) 650 mg PRN Q4HRS PRN UT TEMP > 100.4F; Start at 20:45 Aspirin (Ecotrin) 325 mg DAILYWBKFT PO ; Start 07/30/18 at 08:00 Aspirin (Aspirin) 300 mg PRN DAILY PRN UT IF UNABLE TO TAKE PO; Start 07/29/18 at 20:45 Albuterol Sulfate (Ventolin Neb Soln) 2.5 mg PRN Q4HRS PRN NEB SHORTNESS OF BREATH; Start 07/30/18 at 00:30 Iohexol (Omnipaque 350 Mg/ml) 75 ml 1X ONCE IV Last administered on 07/30/18at 09:20; Start 07/30/18 at 07:30; Stop 07/30/18 at 07:31; Status DC Info (CONTRAST GIVEN -- Rx MONITORING) 1 each PRN DAILY PRN MC SEE COMMENTS; Start 07/30/18 at 07:30; Stop 08/01/18 at 07:29 Active Scripts Active Reported Phentermine Hcl 37.5 Mg Tablet 1 Tab PO DAILY Adderall 20 Mg Tablet (Dextroamphetamine/Amphetamine) 20 Mg Tablet 20 Mg PO DAILY Spironolactone 25 Mg Tablet 1 Tab PO DAILY Losartan Potassium 50 Mg Tablet 50 Mg PO DAILY Ativan (Lorazepam) 0.5 Mg Tablet 0.5 Mg PO Q4HRS PRN Allergies Allergies: Coded Allergies: Penicillins (Verified Allergy, Intermediate, 07/29/18) amoxicillin (Verified Allergy, Intermediate, 07/29/18) ROS Review of System Negative for fever, chills, weight loss, shortness of breath, chest pain, indigestion, hematochezia, melena, and dysuria. Full 14-point review of systems is negative. Physical Exam Physical Examination General: Well-developed, well-nourished male in no acute distress HEENT: Normocephalic andatraumatic. Tympanic membranes clear.Temporal arteries pulsatile and nontender. Neck: Supple without bruit, no meningismus Musculoskeletal: Stability:see neurologic. Gait exam:see neurologic. Tone:see neurologic. Strength:see neurologic. Neurological: Mental Status:intact, orientation, memory, attention span/concentration, language, fund of knowledge normal. Cranial Nerves:Pupils equal and reactive to light, extraocular movements areintact, visual araujo are full to confrontation. Facial sensation is decreased on the left. There is a mild peripheral left facial weakness. Vestibulo-ocular reflex is intact. Palate elevates and tongue protrudes in midline. All other cranial related problems are negative except as mentioned before.Reflexes:2+ and symmetric with flexor plantar responses. Motor:5/5 strength with normal tone and bulk. Coordination: Finger-nose finger and [id number] testing are normal. Rapid alternating movements and fine finger movements are intact. Gait:Normal, including tandem. Sensory:Normal pinprick, vibration, light touch, proprioception. Vitals VITALS Vital Signs Date Time Temp Pulse Resp B/P (MAP) Pulse Ox O2 Delivery O2 Flow Rate FiO2 07/30/18 07:00 96.6 74 18 142/78 (99) 96 Room Air 96.6 Labs Labs Laboratory Tests Test 07/29/18 17:48 07/29/18 17:50 07/29/18 18:23 07/30/18 06:58 White Blood Count 11.0 x10^3/uL (4.0-11.0) Red Blood Count 5.38 x10^6/uL (4.30-5.70) Hemoglobin 16.0 g/dL (13.0-17.5) Hematocrit 46.5 % (39.0-53.0) Mean Corpuscular Volume 86 fL (79-100) Mean Corpuscular Hemoglobin 30 pg (25-35) Mean Corpuscular Hemoglobin Concent 34 g/dL (31-37) Red Cell Distribution Width 12.6 % (11.5-14.5) Platelet Count 335 x10^3/uL (140-400) Neutrophils (%) (Auto) 68 % (31-73) Lymphocytes (%) (Auto) 22 % (24-48) Monocytes (%) (Auto) 9 % (0-9) Eosinophils (%) (Auto) 1 % (0-3) Basophils (%) (Auto) 1 % (0-3) Neutrophils # (Auto) 7.4 x10^3uL (1.8-7.7) Lymphocytes # (Auto) 2.4 x10^3/uL (1.0-4.8) Monocytes # (Auto) 1.0 x10^3/uL (0.0-1.1) Eosinophils # (Auto) 0.1 x10^3/uL (0.0-0.7) Basophils # (Auto) 0.1 x10^3/uL (0.0-0.2) Erythrocyte Sedimentation Rate 16 (0-15) Prothrombin Time 12.4 SEC (11.7-14.0) Prothromb Time International Ratio 1.0 (0.8-1.1) Activated Partial Thromboplast Time 29 SEC (24-38) Sodium Level 140 mmol/L (136-145) Potassium Level 4.1 mmol/L (3.5-5.1) Chloride Level 99 mmol/L (98-107) Carbon Dioxide Level 31 mmol/L (21-32) Anion Gap 10 (6-14) Blood Urea Nitrogen 13 mg/dL (8-26) Creatinine 0.7 mg/dL (0.7-1.3) Estimated GFR (Cockcroft-Gault) 133.3 BUN/Creatinine Ratio 19 (6-20) Glucose Level 97 mg/dL (70-99) Lactic Acid Level 1.0 mmol/L (0.4-2.0) Calcium Level 9.1 mg/dL (8.5-10.1) Magnesium Level 2.0 mg/dL (1.8-2.4) Total Bilirubin 0.4 mg/dL (0.2-1.0) Aspartate Amino Transf (AST/SGOT) 29 U/L (15-37) Alanine Aminotransferase (ALT/SGPT) 62 U/L (16-63) Alkaline Phosphatase 79 U/L (46-116) Creatine Kinase 137 U/L (39-308) Creatine Kinase MB (Mass) 1.0 ng/mL (0.0-3.6) Creatine Kinase MB Relative Index 0.7 % (0-4) Troponin I Quantitative < 0.017 ng/mL (0.000-0.055) C-Reactive Protein, Quantitative 3.8 mg/L (0-3.3) Total Protein 8.3 g/dL (6.4-8.2) Albumin 4.0 g/dL (3.4-5.0) Albumin/Globulin Ratio 0.9 (1.0-1.7) Ethyl Alcohol Level < 10 mg/dL (0-10) Glucose (Fingerstick) 92 mg/dL (70-99) Urine Collection Type Unknown Urine Color Yellow Urine Clarity Cloudy Urine pH 7.0 Urine Specific Lucien 1.020 Urine Protein Negative mg/dL (NEG-TRACE) Urine Glucose (UA) Negative mg/dL (NEG) Urine Ketones (Stick) Negative mg/dL (NEG) Urine Blood Negative (NEG) Urine Nitrite Negative (NEG) Urine Bilirubin Negative (NEG) Urine Urobilinogen Dipstick 0.2 mg/dL (0.2 mg/dL) Urine Leukocyte Esterase Negative (NEG) Urine RBC 0 /HPF (0-2) Urine WBC 0 /HPF (0-4) Urine Squamous Epithelial Cells Occ /LPF Urine Amorphous Sediment Present /HPF Urine Bacteria 0 /HPF (0-FEW) Urine Mucus Slight /LPF Urine Opiates Screen Pos (NEG) Urine Methadone Screen Neg (NEG) Urine Barbiturates Neg (NEG) Urine Phencyclidine Screen Neg (NEG) Urine Amphetamine/Methamphetamine Neg (NEG) Urine Benzodiazepines Screen Neg (NEG) Urine Cocaine Screen Neg (NEG) Urine Cannabinoids Screen Pos (NEG) Urine Ethyl Alcohol Neg (NEG) Triglycerides Level 98 mg/dL (0-150) Cholesterol Level 223 mg/dL (0-200) LDL Cholesterol, Calculated 140 mg/dL (0-100) VLDL Cholesterol, Calculated 20 mg/dL (0-40) Non-HDL Cholesterol Calculated 160 mg/dL (0-129) HDL Cholesterol 63 mg/dL (40-60) Cholesterol/HDL Ratio 3.5 Laboratory Tests Test 07/29/18 17:48 07/29/18 17:50 07/29/18 18:23 07/30/18 06:58 White Blood Count 11.0 x10^3/uL (4.0-11.0) Red Blood Count 5.38 x10^6/uL (4.30-5.70) Hemoglobin 16.0 g/dL (13.0-17.5) Hematocrit 46.5 % (39.0-53.0) Mean Corpuscular Volume 86 fL (79-100) Mean Corpuscular Hemoglobin 30 pg (25-35) Mean Corpuscular Hemoglobin Concent 34 g/dL (31-37) Red Cell Distribution Width 12.6 % (11.5-14.5) Platelet Count 335 x10^3/uL (140-400) Neutrophils (%) (Auto) 68 % (31-73) Lymphocytes (%) (Auto) 22 % (24-48) Monocytes (%) (Auto) 9 % (0-9) Eosinophils (%) (Auto) 1 % (0-3) Basophils (%) (Auto) 1 % (0-3) Neutrophils # (Auto) 7.4 x10^3uL (1.8-7.7) Lymphocytes # (Auto) 2.4 x10^3/uL (1.0-4.8) Monocytes # (Auto) 1.0 x10^3/uL (0.0-1.1) Eosinophils # (Auto) 0.1 x10^3/uL (0.0-0.7) Basophils # (Auto) 0.1 x10^3/uL (0.0-0.2) Erythrocyte Sedimentation Rate 16 (0-15) Prothrombin Time 12.4 SEC (11.7-14.0) Prothromb Time International Ratio 1.0 (0.8-1.1) Activated Partial Thromboplast Time 29 SEC (24-38) Sodium Level 140 mmol/L (136-145) Potassium Level 4.1 mmol/L (3.5-5.1) Chloride Level 99 mmol/L (98-107) Carbon Dioxide Level 31 mmol/L (21-32) Anion Gap 10 (6-14) Blood Urea Nitrogen 13 mg/dL (8-26) Creatinine 0.7 mg/dL (0.7-1.3) Estimated GFR (Cockcroft-Gault) 133.3 BUN/Creatinine Ratio 19 (6-20) Glucose Level 97 mg/dL (70-99) Lactic Acid Level 1.0 mmol/L (0.4-2.0) Calcium Level 9.1 mg/dL (8.5-10.1) Magnesium Level 2.0 mg/dL (1.8-2.4) Total Bilirubin 0.4 mg/dL (0.2-1.0) Aspartate Amino Transf (AST/SGOT) 29 U/L (15-37) Alanine Aminotransferase (ALT/SGPT) 62 U/L (16-63) Alkaline Phosphatase 79 U/L (46-116) Creatine Kinase 137 U/L (39-308) Creatine Kinase MB (Mass) 1.0 ng/mL (0.0-3.6) Creatine Kinase MB Relative Index 0.7 % (0-4) Troponin I Quantitative < 0.017 ng/mL (0.000-0.055) C-Reactive Protein, Quantitative 3.8 mg/L (0-3.3) Total Protein 8.3 g/dL (6.4-8.2) Albumin 4.0 g/dL (3.4-5.0) Albumin/Globulin Ratio 0.9 (1.0-1.7) Ethyl Alcohol Level < 10 mg/dL (0-10) Glucose (Fingerstick) 92 mg/dL (70-99) Urine Collection Type Unknown Urine Color Yellow Urine Clarity Cloudy Urine pH 7.0 Urine Specific Lucien 1.020 Urine Protein Negative mg/dL (NEG-TRACE) Urine Glucose (UA) Negative mg/dL (NEG) Urine Ketones (Stick) Negative mg/dL (NEG) Urine Blood Negative (NEG) Urine Nitrite Negative (NEG) Urine Bilirubin Negative (NEG) Urine Urobilinogen Dipstick 0.2 mg/dL (0.2 mg/dL) Urine Leukocyte Esterase Negative (NEG) Urine RBC 0 /HPF (0-2) Urine WBC 0 /HPF (0-4) Urine Squamous Epithelial Cells Occ /LPF Urine Amorphous Sediment Present /HPF Urine Bacteria 0 /HPF (0-FEW) Urine Mucus Slight /LPF Urine Opiates Screen Pos (NEG) Urine Methadone Screen Neg (NEG) Urine Barbiturates Neg (NEG) Urine Phencyclidine Screen Neg (NEG) Urine Amphetamine/Methamphetamine Neg (NEG) Urine Benzodiazepines Screen Neg (NEG) Urine Cocaine Screen Neg (NEG) Urine Cannabinoids Screen Pos (NEG) Urine Ethyl Alcohol Neg (NEG) Triglycerides Level 98 mg/dL (0-150) Cholesterol Level 223 mg/dL (0-200) LDL Cholesterol, Calculated 140 mg/dL (0-100) VLDL Cholesterol, Calculated 20 mg/dL (0-40) Non-HDL Cholesterol Calculated 160 mg/dL (0-129) HDL Cholesterol 63 mg/dL (40-60) Cholesterol/HDL Ratio 3.[address] HEAD WO CONTRAST No acute extra-axial or parenchymal hemorrhage is identified. There is no significant intra-axial mass effect, midline shift, or extra-axial fluid collection. The fontaine-white differentiation of the major vascular territories is preserved. The ventricles, sulci, and cisterns are within normal limits in size and configuration. The mastoid air cells and the visualized paranasal sinuses are aerated. No acute calvarial abnormality is identified. Impression: 1. No acute intracranial abnormality is identified. CTA of the head and neck with contrast, 07/30/2018: The carotid arteries in the neck are widely patent. The carotid bifurcations are unremarkable. The anterior cerebral and middle cerebral arteries and their major branches show no significant abnormality. No aneurysm, occlusion or major arterial stenosis is identified. The proximal left vertebral artery is partially obscured by artifacts arising from dense venous contrast. Both vertebral arteries in the neck are patent up through their junction with the basilar artery. The basilar artery and both posterior cerebral arteries show no significant abnormality. IMPRESSION: No significant abnormality is detected. Echocardiogram: LEFT VENTRICLE The left ventricle is normal size. There is borderline to mild concentric left ventricular hypertrophy. The left ventricular systolic function is normal and the ejection fraction is within normal range. The Ejection Fraction is 55-60%. There is normal LV segmental wall motion. The left ventricular diastolic function and filling is normal for age. RIGHT VENTRICLE The right ventricle is mild to moderately dilated. There is normal right ventricular wall thickness. The right ventricular systolic function is normal. ATRIA The left atrium is mildly dilated. The right atrium is mildly dilated. The interatrial septum is intact with no evidence for an atrial septal defect or patent foramen ovale as noted on 2-D or Doppler imaging. Injection of bubbles documented no interatrial shunt. AORTIC VALVE The aortic valve is probably trileaflet. Doppler and Color Flow revealed no significant aortic regurgitation. There is no significant aortic valvular stenosis. MITRAL VALVE The mitral valve is normal in structure and function. There is no evidence of mitral valve prolapse. There is no mitral valve stenosis. Doppler and Color Flow revealed no mitral valve regurgitation noted. TRICUSPID VALVE The tricuspid valve is normal in structure and function. Doppler and Color Flow revealed trace tricuspid regurgitation. There is no tricuspid valve prolapse or vegetation. There is no tricuspid valve stenosis. PULMONIC VALVE The pulmonary valve is normal in structure and function. Doppler and Color Flow revealed no pulmonic valvular regurgitation. There is no pulmonic valvular stenosis. GREAT VESSELS The aortic root is normal in size. The ascending aorta is normal in size. The IVC is normal in size and collapses >50% with inspiration. PERICARDIAL EFFUSION There is no evidence of significant pericardial effusion. Critical Notification Critical Value: No <Conclusion> The left ventricular systolic function is normal and the ejection fraction is within normal range. The Ejection Fraction is 55-60%. There is normal LV segmental wall motion. The right ventricle is mild to moderately dilated. The interatrial septum is intact with no evidence for an atrial septal defect or patent foramen ovale as noted on 2-D or Doppler imaging. Injection of bubbles documented no interatrial shunt. Technically dificult study. If there is high suspicion for cardiac source of emboli, consider TASHA. Assessment/Plan Assessment/Plan Impression: Left Carter's palsy, but also had some left facial and arm numbness. Sometimes patients can embellish symptoms. I doubt that he had a stroke. New onset of headache, resolved now, may be related to Carter's palsy Note hyperlipidemia History of single seizure 2 years ago, no evidence or recurrence. In particular , this peripheral facial weakness is not due to a John's paralysis Recommendations: His stroke workup is nearly complete except for the MRI. If the study is negative, treat for Carter's palsy with a short course of prednisone, 40 mg daily for 3 days, 30 mg on day 4, 20 mg on day 5, 10 mg on day 6, then stop Follow up with Dr. Viveros if symptoms have not resolved and 4-6 weeks. Otherwise follow up as needed. He does have hyperlipidemia, he needs to discuss that with his primary physician , but I would start a statin if MRI shows that he had a stroke. Okay to discharge, then, if MRI negative. Thank you for letting me help the patient's care. KAMRON ESPINOZA MD Jul 30, 2018 10:26
[2018-07-30 11:00] VITALS: BP 155/85
[2018-07-30] MEDS ORDERED: PRED-220 PO (12:27)
--- NOTE | 2018-07-30 15:12 | PDOC3 ---
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 Brief Hospital Course Allergies Allergies Coded Allergies Type Severity Reaction Last Updated Verified Penicillins Allergy Intermediate 07/29/18 Yes amoxicillin Allergy Intermediate 07/29/18 Yes Vital Signs Vital Signs Date Time Temp Pulse Resp B/P (MAP) Pulse Ox O2 Delivery O2 Flow Rate FiO2 07/30/18 11:00 98.0 68 18 155/85 (108) 95 Room Air 98.0 Lab Results Laboratory Tests Test 07/29/18 17:48 07/29/18 17:50 07/29/18 18:23 07/30/18 06:58 White Blood Count 11.0 x10^3/uL (4.0-11.0) Red Blood Count 5.38 x10^6/uL (4.30-5.70) Hemoglobin 16.0 g/dL (13.0-17.5) Hematocrit 46.5 % (39.0-53.0) Mean Corpuscular Volume 86 fL (79-100) Mean Corpuscular Hemoglobin 30 pg (25-35) Mean Corpuscular Hemoglobin Concent 34 g/dL (31-37) Red Cell Distribution Width 12.6 % (11.5-14.5) Platelet Count 335 x10^3/uL (140-400) Neutrophils (%) (Auto) 68 % (31-73) Lymphocytes (%) (Auto) 22 % (24-48) Monocytes (%) (Auto) 9 % (0-9) Eosinophils (%) (Auto) 1 % (0-3) Basophils (%) (Auto) 1 % (0-3) Neutrophils # (Auto) 7.4 x10^3uL (1.8-7.7) Lymphocytes # (Auto) 2.4 x10^3/uL (1.0-4.8) Monocytes # (Auto) 1.0 x10^3/uL (0.0-1.1) Eosinophils # (Auto) 0.1 x10^3/uL (0.0-0.7) Basophils # (Auto) 0.1 x10^3/uL (0.0-0.2) Erythrocyte Sedimentation Rate 16 (0-15) Prothrombin Time 12.4 SEC (11.7-14.0) Prothromb Time International Ratio 1.0 (0.8-1.1) Activated Partial Thromboplast Time 29 SEC (24-38) Sodium Level 140 mmol/L (136-145) Potassium Level 4.1 mmol/L (3.5-5.1) Chloride Level 99 mmol/L (98-107) Carbon Dioxide Level 31 mmol/L (21-32) Anion Gap 10 (6-14) Blood Urea Nitrogen 13 mg/dL (8-26) Creatinine 0.7 mg/dL (0.7-1.3) Estimated GFR (Cockcroft-Gault) 133.3 BUN/Creatinine Ratio 19 (6-20) Glucose Level 97 mg/dL (70-99) Lactic Acid Level 1.0 mmol/L (0.4-2.0) Calcium Level 9.1 mg/dL (8.5-10.1) Magnesium Level 2.0 mg/dL (1.8-2.4) Total Bilirubin 0.4 mg/dL (0.2-1.0) Aspartate Amino Transf (AST/SGOT) 29 U/L (15-37) Alanine Aminotransferase (ALT/SGPT) 62 U/L (16-63) Alkaline Phosphatase 79 U/L (46-116) Creatine Kinase 137 U/L (39-308) Creatine Kinase MB (Mass) 1.0 ng/mL (0.0-3.6) Creatine Kinase MB Relative Index 0.7 % (0-4) Troponin I Quantitative < 0.017 ng/mL (0.000-0.055) C-Reactive Protein, Quantitative 3.8 mg/L (0-3.3) Total Protein 8.3 g/dL (6.4-8.2) Albumin 4.0 g/dL (3.4-5.0) Albumin/Globulin Ratio 0.9 (1.0-1.7) Ethyl Alcohol Level < 10 mg/dL (0-10) Glucose (Fingerstick) 92 mg/dL (70-99) Urine Collection Type Unknown Urine Color Yellow Urine Clarity Cloudy Urine pH 7.0 Urine Specific [place] 1.020 Urine Protein Negative mg/dL (NEG-TRACE) Urine Glucose (UA) Negative mg/dL (NEG) Urine Ketones (Stick) Negative mg/dL (NEG) Urine Blood Negative (NEG) Urine Nitrite Negative (NEG) Urine Bilirubin Negative (NEG) Urine Urobilinogen Dipstick 0.2 mg/dL (0.2 mg/dL) Urine Leukocyte Esterase Negative (NEG) Urine RBC 0 /HPF (0-2) Urine WBC 0 /HPF (0-4) Urine Squamous Epithelial Cells Occ /LPF Urine Amorphous Sediment Present /HPF Urine Bacteria 0 /HPF (0-FEW) Urine Mucus Slight /LPF Urine Opiates Screen Pos (NEG) Urine Methadone Screen Neg (NEG) Urine Barbiturates Neg (NEG) Urine Phencyclidine Screen Neg (NEG) Urine Amphetamine/Methamphetamine Neg (NEG) Urine Benzodiazepines Screen Neg (NEG) Urine Cocaine Screen Neg (NEG) Urine Cannabinoids Screen Pos (NEG) Urine Ethyl Alcohol Neg (NEG) Triglycerides Level 98 mg/dL (0-150) Cholesterol Level 223 mg/dL (0-200) LDL Cholesterol, Calculated 140 mg/dL (0-100) VLDL Cholesterol, Calculated 20 mg/dL (0-40) Non-HDL Cholesterol Calculated 160 mg/dL (0-129) HDL Cholesterol 63 mg/dL (40-60) Cholesterol/HDL Ratio 3.5 Laboratory Tests Test 07/29/18 17:48 07/29/18 17:50 07/29/18 18:23 07/30/18 06:58 White Blood Count 11.0 x10^3/uL (4.0-11.0) Red Blood Count 5.38 x10^6/uL (4.30-5.70) Hemoglobin 16.0 g/dL (13.0-17.5) Hematocrit 46.5 % (39.0-53.0) Mean Corpuscular Volume 86 fL (79-100) Mean Corpuscular Hemoglobin 30 pg (25-35) Mean Corpuscular Hemoglobin Concent 34 g/dL (31-37) Red Cell Distribution Width 12.6 % (11.5-14.5) Platelet Count 335 x10^3/uL (140-400) Neutrophils (%) (Auto) 68 % (31-73) Lymphocytes (%) (Auto) 22 % (24-48) Monocytes (%) (Auto) 9 % (0-9) Eosinophils (%) (Auto) 1 % (0-3) Basophils (%) (Auto) 1 % (0-3) Neutrophils # (Auto) 7.4 x10^3uL (1.8-7.7) Lymphocytes # (Auto) 2.4 x10^3/uL (1.0-4.8) Monocytes # (Auto) 1.0 x10^3/uL (0.0-1.1) Eosinophils # (Auto) 0.1 x10^3/uL (0.0-0.7) Basophils # (Auto) 0.1 x10^3/uL (0.0-0.2) Erythrocyte Sedimentation Rate 16 (0-15) Prothrombin Time 12.4 SEC (11.7-14.0) Prothromb Time International Ratio 1.0 (0.8-1.1) Activated Partial Thromboplast Time 29 SEC (24-38) Sodium Level 140 mmol/L (136-145) Potassium Level 4.1 mmol/L (3.5-5.1) Chloride Level 99 mmol/L (98-107) Carbon Dioxide Level 31 mmol/L (21-32) Anion Gap 10 (6-14) Blood Urea Nitrogen 13 mg/dL (8-26) Creatinine 0.7 mg/dL (0.7-1.3) Estimated GFR (Cockcroft-Gault) 133.3 BUN/Creatinine Ratio 19 (6-20) Glucose Level 97 mg/dL (70-99) Lactic Acid Level 1.0 mmol/L (0.4-2.0) Calcium Level 9.1 mg/dL (8.5-10.1) Magnesium Level 2.0 mg/dL (1.8-2.4) Total Bilirubin 0.4 mg/dL (0.2-1.0) Aspartate Amino Transf (AST/SGOT) 29 U/L (15-37) Alanine Aminotransferase (ALT/SGPT) 62 U/L (16-63) Alkaline Phosphatase 79 U/L (46-116) Creatine Kinase 137 U/L (39-308) Creatine Kinase MB (Mass) 1.0 ng/mL (0.0-3.6) Creatine Kinase MB Relative Index 0.7 % (0-4) Troponin I Quantitative < 0.017 ng/mL (0.000-0.055) C-Reactive Protein, Quantitative 3.8 mg/L (0-3.3) Total Protein 8.3 g/dL (6.4-8.2) Albumin 4.0 g/dL (3.4-5.0) Albumin/Globulin Ratio 0.9 (1.0-1.7) Ethyl Alcohol Level < 10 mg/dL (0-10) Glucose (Fingerstick) 92 mg/dL (70-99) Urine Collection Type Unknown Urine Color Yellow Urine Clarity Cloudy Urine pH 7.0 Urine Specific [place] 1.020 Urine Protein Negative mg/dL (NEG-TRACE) Urine Glucose (UA) Negative mg/dL (NEG) Urine Ketones (Stick) Negative mg/dL (NEG) Urine Blood Negative (NEG) Urine Nitrite Negative (NEG) Urine Bilirubin Negative (NEG) Urine Urobilinogen Dipstick 0.2 mg/dL (0.2 mg/dL) Urine Leukocyte Esterase Negative (NEG) Urine RBC 0 /HPF (0-2) Urine WBC 0 /HPF (0-4) Urine Squamous Epithelial Cells Occ /LPF Urine Amorphous Sediment Present /HPF Urine Bacteria 0 /HPF (0-FEW) Urine Mucus Slight /LPF Urine Opiates Screen Pos (NEG) Urine Methadone Screen Neg (NEG) Urine Barbiturates Neg (NEG) Urine Phencyclidine Screen Neg (NEG) Urine Amphetamine/Methamphetamine Neg (NEG) Urine Benzodiazepines Screen Neg (NEG) Urine Cocaine Screen Neg (NEG) Urine Cannabinoids Screen Pos (NEG) Urine Ethyl Alcohol Neg (NEG) Triglycerides Level 98 mg/dL (0-150) Cholesterol Level 223 mg/dL (0-200) LDL Cholesterol, Calculated 140 mg/dL (0-100) VLDL Cholesterol, Calculated 20 mg/dL (0-40) Non-HDL Cholesterol Calculated 160 mg/dL (0-129) HDL Cholesterol 63 mg/dL (40-60) Cholesterol/HDL Ratio 3.5 Brief Hospital Course Mr. Solis is a 28 old male who presented with left facial droop. Patient clearly presented a Carter's palsy and was started promptly on steroid therapy. He was seen in consultation by neurology CT angiogram the head was performed with no abnormalities. CAT scan of the head was also normal which in light of his greater than 24 hours duration of his symptoms if indeed this was a central etiology the patient would've had findings on the CAT scan. We discussed the importance of following up with his primary care physician noted to address his dyslipidemia and that we found on our testing today. I have also encouraged him to return to the emergency department if his symptoms worsen. We discussed the importance of eye protection given that he may have extra dry eyes since he has to really work on closing his left eye as a consequence of his Carter's palsy. Patient is in good spirits and reassured that 90% of times they recover and that this is not a central etiology. No other neurological deficits were evident he was deemed appropriate for discharge home; concerns were addressed to the best of my abilities Gen.: well-developed well-nourished in no apparent distress Head: Normal shape atraumatic Eyes: Pupils equal reactive to light and accommodation, normal conjunctivae and lids Ears: Normal shape Nose: Normal shape no trauma Mouth: No exudates of the back of throat no thrush no lesions Neck: Supple no JVD no carotid bruit or lymphadenopathy no thyromegaly Chest: Lungs clear to auscultation with good inspiratory effort no crackles rales or rhonchi Cardiovascular: S1-S2 regular rhythm no murmurs gallops or rubs Abdomen: Bowel sounds present soft nontender no hepatosplenomegaly appreciated sign Extremities: No clubbing no cyanosis no edema peripheral pulses palpated bilaterally Neurological: Alert awake oriented in person time place and situation, cranial nerves II through XII intact, no motor or sensory deficits appreciated Psych: Appropriate mood, cooperative Discharge Information Condition at Discharge: Improved Follow Up: Weeks Disposition/Orders: D/C to Home Scheduled Dextroamphetamine/Amphetamine (Adderall 20 Mg Tablet) 20 Mg Tablet, 20 MG PO DAILY for hyperactivity, (Reported) Entered as Reported by: SUHAS PALMA on 07/30/1831 Last Taken: Unknown Dose on Unknown Date & Time Last Action: New Order on 07/30/1831 by SUHAS PALMA Losartan Potassium (Losartan Potassium) 50 Mg Tablet, 50 MG PO DAILY for HYPERTENSION, (Reported) Entered as Reported by: SUHAS PALMA on 07/30/1831 Last Taken: Unknown Dose on 07/23/18 Last Action: Last Taken Edited on 11/12 by SUHAS PALMA Phentermine Hcl (Phentermine Hcl) 37.5 Mg Tablet, 1 TAB PO DAILY for weight loss , #30 Ref 2 (Reported) Entered as Reported by: SUHAS PALMA on 07/30/1831 Last Taken: Unknown Dose on Unknown Date & Time Last Action: New Order on 07/30/1831 by SUHAS PALMA Prednisone (Prednisone ) 10 Mg Tablet, 40 MG PO DAILY for BELLS PALSY for 6 Days, #24 Ref 0 TAKE 40 MG FOR 3 DAYS THEN 30 MG FOR ONE DAY THEN 20 MG FOR ONE DAY THEN 10 MG FOR ONE DAY THEN STOP Prescribed by: ELIJAH BACA MD on 07/30/18 1227 Spironolactone (Spironolactone) 25 Mg Tablet, 1 TAB PO DAILY for blood pressure , #90 Ref 1 (Reported) Entered as Reported by: SUHAS PALMA on 07/30/1831 Last Taken: Unknown Dose on 07/23/18 Last Action: New Order on 07/30/1831 by SUHAS PALMA Scheduled PRN Lorazepam (Ativan) 0.5 Mg Tablet, 0.5 MG PO Q4HRS PRN for ANXIETY / AGITATION, ( Reported) Entered as Reported by: SUHAS PALMA on 07/30/1831 Last Taken: Unknown Dose on 07/02/18 Last Action: New Order on 07/30/1831 by SUHAS PALMA Discontinued Medications Info (No Known Medications Prior To Admisstion) Each, 1 EACH , (Reported) Entered as Reported by: SEAN ARAUZ on 09/14/16 1304 Last Action: Discontinued on 07/30/1832 by ELIJAH YANEZ MD Jul 30, 2018 15:12
--- NOTE | 2018-07-30 15:14 | NUR ---
SW following. Discussed with RN. SW attempted to meet with pt to discuss advance directives, RN advised pt had discharged already. No further SW needs.
--- NOTE | 2018-07-30 15:28 | NUR ---
Patient is scheduled for MRI. Transport personnel informed me that patient claimed he's not going to have MRI done. Clarified with patient , said MD came and told him the procedure was cancelled. Paged Dr. Deshpande at 1300, clarified with him about MRI and said it was cancelled. Addendum: 07/30/18 at 1607 by ELVIA MEYER RN Received call from Dr. Dowling at 1530, clarified MRI procedure. Dr. Deshpande called back at 1540, patient will have to undergo brain MRI as out patient; MD to contact patient.
--- NOTE | 2018-07-30 16:02 | NUR ---
Discharge Note: THEODORE DURON [address] Discharge instructions and discharge home medications reviewed with patient and a copy given. All questions have been answered and understanding verbalized. The following instructions and handouts were given: Stroke education manual/handbook [place] palsy handout prescription for prednisone Ff up with PCP in 1 week Discontinued lines and drains: peripheral IV intact, patient tolerated removal, no complications noted Patient discharged to home with self care accompanied by significant other via wheelchair at 1502.
== END 2018-07-30 15:02 | disposition home or self-care (01) | DRG 74 ==
LOC: ER 17:35 → 6 SOUTH 19:00
PROVIDERS: ADMIT Internal Medicine; ATTEND Internal Medicine
DX: G51.0 Bell's palsy (principal); Z68.41 Body mass index [BMI] 40.0-44.9, adult; I10 Essential (primary) hypertension; E66.01 Morbid (severe) obesity due to excess calories; E78.5 Hyperlipidemia, unspecified; G40.909 Epilepsy, unspecified, not intractable, without status epilepticus; J45.909 Unspecified asthma, uncomplicated; F32.9 Major depressive disorder, single episode, unspecified; F41.9 Anxiety disorder, unspecified; Z88.0 Allergy status to penicillin; Z88.8 Allergy status to other drugs, medicaments and biological substances; Z79.899 Other long term (current) drug therapy
CPT/HCPCS: 36415; 70450; 70496; 70498; 71045; 80053; 80061; 80307; 81001; 82553; 82962; 83605; 83735; 84484; 85025; 85610; 85651; 85730; 86140; 93005; 93306; 94640; G0480; J2405; J7510; J7620; Q9967; 92610; 99285-25